=== PATIENT | male | born 1955 | race African-American/Black ===

== ENCOUNTER 2018-01-23 05:36 | Inpatient (IN) | payer MEDICARE, MEDICAID ==
[~2018-01-23] VITALS: Ht 167.6 cm; Wt 75.7 kg
[2018-01-23] MEDS ORDERED: NALOXONE HCL 0.4 MG/ML 1ML VIAL IV STA (06:13)
[2018-01-23 06:38] LABS: BASOPHILS % 0.5 % (0.0-2.0); EOSINOPHILS % 7.2 % (0.0-5.0); HEMATOCRIT. 38.1 % (42.0-52.0); HEMOGLOBIN. 12.6 g/dL (14.0-18.0); LYMPHOCYTES % 22.4 % (20.0-50.0); MEAN CORPUSCULAR HEMOGLOBIN 28.7 pg (28.0-32.0); MEAN CORPUSCULAR VOLUME 86.7 fL (80.0-94.0); MEAN PLATELET VOLUME 8.2 fl (7.4-10.4); MONOCYTES % 7.5 % (2.0-8.0); NEUTROPHILS % 62.4 % (40.0-76.0); PLATELET 228 x1000/uL (130-400); RED CELL DISTRIBUTION WIDTH 15.1 % (11.6-14.6)
[2018-01-23 06:44] LABS: CHLORIDE 104 mEq/L (98-107)
[2018-01-23 06:48] LABS: AMMONIA 41 uMol/L (<32); ETHANOL BLOOD < 10 mg/dL
[2018-01-23] MEDS ORDERED: IPRATROPIUM/ALBUTEROL 0.5-3(2.5)MG/3ML NEB HHN PRN (08:45)
[2018-01-23] MEDS ORDERED: DEXT 5%/0.45% NACL 1000ML 1,000 ML IV SCH (08:45)
[2018-01-23 08:57] LABS: BG BASE EXCESS 0.9 mmol/L (-2.0-2.0); BG CARBOXYHEMOGLOBIN 1.4 % (0.5-1.5); BG DEOXYHEMOGLOBIN 7.8 % (0.0-5.0); BG FRACTION INSPIRED OXYGEN 21; BG HCO3 ACT 26.7 mmol/L (22.0-26.0); BG METHEMOGLOBIN 0.2 % (0.0-1.5); BG OXYGEN SATURATION 92.1 % (92.0-98.5); BG OXYHEMOGLOBIN 90.6 % (94.0-97.0); BG PCO2 46.9 mmHg (35.0-45.0); BG PH 7.373 (7.350-7.450); BG PO2 65.9 mmHg (75.0-100.0); BG SAMPLE SITE RIGHT BRACHIAL; BG TOTAL HEMOGLOBIN 13.6 g/dL (12.0-18.0); BG VENT MODE ROOM AIR
[2018-01-23] MEDS ORDERED: BLOOD SUGAR DIAGNOSTIC STRIP TEST SCH (09:00)
[2018-01-23 09:46] LABS: CLARITY URINE CLEAR (CLEAR); COLOR URINE DARK YELLOW (YELLOW); KETONES URINE NEGATIVE (NEGATIVE); LEUKOCYTE ESTERASE URINE NEGATIVE (NEGATIVE); NITRITE URINE NEGATIVE (NEGATIVE); OCCULT BLOOD URINE NEGATIVE (NEGATIVE); PROTEIN URINE NEGATIVE (NEGATIVE); SPECIFIC GRAVITY URINE 1.035 (1.005-1.030)
[2018-01-23 10:07] LABS: *COCAINE SCREEN URINE NEGATIVE (NEGATIVE); OPIATES URINE SCREEN PRESUMTIVE POSITIVE (NEGATIVE)
[2018-01-23 10:08] LABS: *AMPHETAMINES SCREEN URINE NEGATIVE (NEGATIVE); *BENZODIAZEPINES SCREEN URINE PRESUMTIVE POSITIVE (NEGATIVE); CANNABINOID URINE SCREEN NEGATIVE (NEGATIVE)
[2018-01-23 10:09] LABS: *BARBITURATES SCREEN URINE NEGATIVE (NEGATIVE); METHADONE URINE SCREEN NEGATIVE (NEGATIVE)
[2018-01-23 10:10] LABS: PHENCYCLIDINE URINE SCREEN PRESUMTIVE POSITIVE (NEGATIVE)
[2018-01-23] MEDS ORDERED: KETOROLAC 30MG/ML VIAL IV ONE (11:00)
[2018-01-23] MEDS ORDERED: ACETAMINOPHEN 325MG TABLET PO ONE (11:00)
[2018-01-23 16:50] VITALS: BP 142/79
[2018-01-23] MEDS: HYDROCODONE/ACETAMINOPHEN 5/325MG TABLET PO PRN (17:31)
[2018-01-23] MEDS: INSULIN LISPRO 100 UNITS/ML SUBCUT SCH ×2 (17:32→21:00)
[2018-01-23] MEDS: BLOOD SUGAR DIAGNOSTIC STRIP TEST SCH ×2 (17:32→21:43)
[2018-01-23] MEDS ORDERED: DEXTROSE 50% WATER 50ML SYRINGE IV PRN (17:45)
[2018-01-23] MEDS ORDERED: BUDESONIDE 0.5MG/2ML NEB HHN SCH (18:00)
[2018-01-23 18:12] VITALS: BP 142/79
[2018-01-23 20:00] VITALS: BP 199/98
[2018-01-23] MEDS: CLONIDINE 0.1MG TABLET PO PRN (20:15)
[2018-01-23] MEDS ORDERED: AMLO10TA80 PO (20:31)
[2018-01-23] MEDS ORDERED: FINA5TAB3 PO (20:31)
[2018-01-23] MEDS ORDERED: ESCI20TA36 PO (20:31)
[2018-01-23] MEDS ORDERED: IRBE300T42 PO (20:32)
[2018-01-23] MEDS ORDERED: LORA0.5T2 PO (20:34)
[2018-01-23] MEDS ORDERED: TAMS-11 PO (20:34)
[2018-01-23] MEDS ORDERED: PREG75CA PO (20:34)
[2018-01-23] MEDS ORDERED: TIZA-19 PO (20:34)
[2018-01-23] MEDS ORDERED: MELA5TAB3 PO (20:35)
[2018-01-23] MEDS: HYDROMORPHONE HCL/PF 2MG/ML CPJ IV PRN (21:50)
[2018-01-23] MEDS: AMLODIPINE 5MG TABLET PO SCH (21:51)
[2018-01-24] VITALS: BP 178/85
[2018-01-24] MEDS: CLONIDINE 0.1MG TABLET PO PRN (01:40)
[2018-01-24] MEDS: HYDROMORPHONE HCL/PF 2MG/ML CPJ IV PRN ×3 (03:18→16:27)
[2018-01-24 04:00] VITALS: BP 144/87
[2018-01-24] MEDS: BLOOD SUGAR DIAGNOSTIC STRIP TEST SCH ×3 (05:41→17:05)
[2018-01-24 07:03] LABS: BASOPHILS % 0.3 % (0.0-2.0); EOSINOPHILS % 7.1 % (0.0-5.0); HEMATOCRIT. 39.6 % (42.0-52.0); HEMOGLOBIN. 13.4 g/dL (14.0-18.0); LYMPHOCYTES % 15.5 % (20.0-50.0); MEAN CORPUSCULAR VOLUME 85.7 fL (80.0-94.0); MEAN PLATELET VOLUME 8.1 fl (7.4-10.4); NEUTROPHILS % 70.1 % (40.0-76.0); PLATELET 233 x1000/uL (130-400); RED BLOOD CELL COUNT 4.62 mill/uL (4.7-6.1)
[2018-01-24] MEDS: INSULIN LISPRO 100 UNITS/ML SUBCUT SCH ×3 (07:42→17:20)
[2018-01-24 08:00] VITALS: BP 138/70
[2018-01-24 08:06] LABS: CHLORIDE 106 mEq/L (98-107)
[2018-01-24] MEDS ORDERED: AMLODIPINE 5MG TABLET PO SCH (09:00)
[2018-01-24] MEDS: AMLODIPINE 5MG TABLET PO SCH (09:07)
[2018-01-24 12:00] VITALS: BP 134/61
[2018-01-24] MEDS: HYDROCODONE/ACETAMINOPHEN 5/325MG TABLET PO PRN (14:57)
[2018-01-24] MEDS ORDERED: AMLODIPINE 10MG TABLET PO SCH (17:45)
[2018-01-24 18:03] VITALS: BP 133/60
[2018-01-24] MEDS ORDERED: FINASTERIDE 5MG TABLET PO SCH (18:45)
[2018-01-24] MEDS ORDERED: LORAZEPAM 0.5MG TABLET PO SCH (21:00)
[2018-01-25] MEDS ORDERED: TAMSULOSIN HCL 0.4MG SR CAPSULE PO SCH (09:00)
[2018-01-25] MEDS ORDERED: TIZANIDINE HCL 4MG TABLET PO SCH (09:00)
[2018-01-25] MEDS ORDERED: PREGABALIN 75MG CAPSULE PO SCH (09:00)
== END 2018-01-24 18:37 | disposition home or self-care (01) | DRG 917 ==
LOC: ER 05:36 → 7WST 07:55 → EDBEDREQ 07:58 → ENRESERV 15:48 → 7WST 16:46
PROVIDERS: ADMIT Internal Medicine Nephrology; ATTEND Internal Medicine Nephrology
DX: T50.901A Poisoning by unspecified drugs, medicaments and biological substances, accidental (unintentional), initial encounter (principal); G93.41 Metabolic encephalopathy; E44.1 Mild protein-calorie malnutrition; G95.89 Other specified diseases of spinal cord; M54.9 Dorsalgia, unspecified; E78.00 Pure hypercholesterolemia, unspecified; E78.5 Hyperlipidemia, unspecified; G89.29 Other chronic pain; J44.9 Chronic obstructive pulmonary disease, unspecified; D64.9 Anemia, unspecified; I11.9 Hypertensive heart disease without heart failure; Z68.27 Body mass index [BMI] 27.0-27.9, adult
CPT/HCPCS: 36415; 36600; 70450; 71045; 80048; 80053; 80061; 80305; 81003; 82140; 82375; 82805; 82962; 84443; 85025; 92610; 93005; 96374; 96375; 97162; 99285; G0482; J1170; J1815; J1885; J2310

== ENCOUNTER 2022-11-18 16:46 | Emergency (ER) | payer MEDICARE, MEDICAID ==
[~2022-11-18] VITALS: Ht 167.6 cm; Wt 73.0 kg
[~2022-11-18 16:46] MED LIST: AMLO10TA80 PO; ESCI20TA37 PO; FINA5TAB3 PO; IRBE300T42 PO; LORA0.5T2 PO; MELA5TAB3 PO; PREG75CA PO; TAMS-11 PO; TIZA-19 PO
[2022-11-18 17:13] LABS: BASOPHILS % 0.3 % (0.0-2.0); EOSINOPHILS % 1.7 % (0.0-5.0); HEMATOCRIT. 42.8 % (42.0-52.0); HEMOGLOBIN. 13.9 g/dL (14.0-18.0); LYMPHOCYTES % 20.9 % (20.0-50.0); MEAN CORPUSCULAR HEMOGLOBIN 30.2 pg (28.0-32.0); MEAN CORPUSCULAR VOLUME 92.8 fL (80.0-94.0); MEAN PLATELET VOLUME 8.6 fl (7.4-10.4); MONOCYTES % 4.7 % (2.0-8.0); NEUTROPHILS % 72.4 % (40.0-76.0); PLATELET 355 x1000/uL (130-400); RED BLOOD CELL COUNT 4.61 mill/uL (4.7-6.1); RED CELL DISTRIBUTION WIDTH 15.4 % (11.6-14.6)
[2022-11-18 17:17] LABS: CHLORIDE 102 mEq/L (98-107)
[2022-11-18 17:27] LABS: BETA HYDROXYBUTYRATE 0.2 mMol/L (0.0-0.3); ETHANOL BLOOD 250 mg/dL
[2022-11-18] MEDS ORDERED: HALOPERIDOL LACTATE 5MG/ML VIAL IM ONE (17:45)
[2022-11-18] MEDS ORDERED: LORAZEPAM 2MG/ML CPJ IV ONE (17:45)
[2022-11-18 17:59] LABS: CLARITY URINE CLEAR (CLEAR); COLOR URINE YELLOW (YELLOW); KETONES URINE NEGATIVE (NEGATIVE); LEUKOCYTE ESTERASE URINE NEGATIVE (NEGATIVE); NITRITE URINE NEGATIVE (NEGATIVE); OCCULT BLOOD URINE NEGATIVE (NEGATIVE); PROTEIN URINE TRACE (NEGATIVE); SPECIFIC GRAVITY URINE 1.011 (1.005-1.030); UROBILINOGEN URINE 0.2 E.U./dL (0.2-1.0)
[2022-11-18 18:14] LABS: *AMPHETAMINES SCREEN URINE NEGATIVE (NEGATIVE); *BARBITURATES SCREEN URINE NEGATIVE (NEGATIVE); *BENZODIAZEPINES SCREEN URINE NEGATIVE (NEGATIVE); *COCAINE SCREEN URINE NEGATIVE (NEGATIVE); CANNABINOID URINE SCREEN NEGATIVE (NEGATIVE); METHADONE URINE SCREEN NEGATIVE (NEGATIVE); OPIATES URINE SCREEN NEGATIVE (NEGATIVE); PHENCYCLIDINE URINE SCREEN NEGATIVE (NEGATIVE)
[2022-11-18 23:45] VITALS: BP 132/84
== END 2022-11-19 00:13 | disposition home or self-care (01) ==
LOC: ER 17:00
DX: G92.9 Unspecified toxic encephalopathy (principal); F10.20 Alcohol dependence, uncomplicated; Y90.8 Blood alcohol level of 240 mg/100 ml or more; J44.9 Chronic obstructive pulmonary disease, unspecified; E11.9 Type 2 diabetes mellitus without complications; E78.00 Pure hypercholesterolemia, unspecified; I10 Essential (primary) hypertension
CPT/HCPCS: 36415; 70450; 80053; 80305; 80307; 80320; 80329; 81003; 82010; 85025; 96372; 96374; 99291; J1630; J2060; G0480

== ENCOUNTER 2025-01-10 19:02 | Inpatient (IN) | payer MEDICARE, MEDICAID ==
[~2025-01-10] VITALS: Ht 165.1 cm; Wt 81.6 kg
[~2025-01-10 19:02] MED LIST changes: +FINA-37 PO; -FINA5TAB3 PO; +INSULIN GLARGINE 100 UNITS/ML SUBCUT SCH; -TAMS-11 PO; +TAMS-54 PO
[2025-01-10 20:00] VITALS: BP_SYST 137; BP_SYST 146; BP_DIAS 69; BP_DIAS 81; PULSE 66; PULSE 91; RESP 18; TEMP 36.3; TEMP 36.6; O2SAT 100
[2025-01-10] MEDS ORDERED: ONDANSETRON HCL 4MG/2ML INJ IV PRN (20:00)
[2025-01-10] MEDS ORDERED: DEXTROSE 50% WATER 50ML SYRINGE IV PRN (20:00)
[2025-01-10] MEDS ORDERED: HYDRALAZINE 20MG/ML VIAL IV PRN (20:00)
[2025-01-10] MEDS ORDERED: GUAIFENESIN 200MG/10ML SUGAR FREE UDC PO PRN (20:00)
[2025-01-10] MEDS ORDERED: DOCUSATE SODIUM 100MG CAPSULE PO PRN (20:00)
[2025-01-10] MEDS: INSULIN LISPRO 100 UNITS/ML SUBCUT SCH (21:00)
[2025-01-10] MEDS: BLOOD SUGAR DIAGNOSTIC STRIP TEST SCH (21:20)
[2025-01-11] MEDS: ACETAMINOPHEN 325MG TABLET PO PRN (00:17)
[2025-01-11] MEDS ORDERED: DOCUSATE SODIUM 100MG CAPSULE PO PRN (01:15)
[2025-01-11] MEDS: PANTOPRAZOLE 40MG DR TABLET PO SCH (06:20)
[2025-01-11] MEDS: INSULIN LISPRO 100 UNITS/ML SUBCUT SCH (07:00)
[2025-01-11 07:31] LABS: BASOPHILS % 0.4 % (0.0-2.0); EOSINOPHILS % 2.2 % (0.0-5.0); HEMATOCRIT. 30.6 % (42.0-52.0); HEMOGLOBIN. 10.1 g/dL (14.0-18.0); LYMPHOCYTES % 18.3 % (20.0-50.0); MEAN CORPUSCULAR HEMOGLOBIN 30.2 pg (28.0-32.0); MEAN CORPUSCULAR HGB CONC 32.9 g/dL (31.0-37.0); MEAN PLATELET VOLUME 7.7 fl (7.4-10.4); MONOCYTES % 7.8 % (2.0-8.0); NEUTROPHILS % 71.3 % (40.0-76.0); PLATELET 583 x1000/uL (130-400); RED BLOOD CELL COUNT 3.32 mill/uL (4.7-6.1); RED CELL DISTRIBUTION WIDTH 16.8 % (11.6-14.6); WHITE BLOOD COUNT 8.5 x1000/uL (4.5-11.0)
[2025-01-11 07:38] LABS: CHLORIDE 105 mEq/L (98-107); POTASSIUM 3.4 mEq/L (3.5-5.1); SODIUM 141 mEq/L (136-145)
[2025-01-11 07:39] LABS: CARBON DIOXIDE 27 mEq/L (21-32)
[2025-01-11 07:45] LABS: CREATININE 0.8 mg/dL (0.6-1.3); GLUCOSE 106 mg/dL (70-105); UREA NITROGEN BLOOD 11 mg/dL (9-23)
[2025-01-11 07:46] LABS: ALANINE AMINOTRANSFERASE 29 IU/L (10-49); ASPARTATE AMINOTRANSFERASE 28 IU/L (<34)
[2025-01-11 07:47] LABS: BILIRUBIN TOTAL 0.4 mg/dL (0.1-1.0); PREALBUMIN 6.2 mg/dl (10.0-40.0)
[2025-01-11 08:00] VITALS: BP 179/81; PULSE 82; RESP 20; TEMP 36.7; O2SAT 98
[2025-01-11] MEDS: LACTULOSE 20G/30ML UDC PO SCH (08:55)
[2025-01-11] MEDS: FERROUS SULFATE 300MG/5ML UDC PO SCH (08:56)
[2025-01-11] MEDS: CYANOCOBALAMIN 1000MCG TABLET PO SCH (08:56)
[2025-01-11] MEDS: MIDODRINE HCL 2.5MG TABLET PO SCH (09:00)
[2025-01-11] MEDS ORDERED: MIDODRINE HCL 5MG TABLET PO SCH (09:00)
[2025-01-11] MEDS ORDERED: CLOPIDOGREL 75MG TABLET PO SCH (09:00)
[2025-01-11] MEDS: FINASTERIDE 5MG TABLET PO SCH (09:02)
[2025-01-11] MEDS: TAMSULOSIN HCL 0.4MG SR CAPSULE PO SCH (09:03)
[2025-01-11] MEDS: ENOXAPARIN 40MG/0.4ML SYR SUBCUT SCH (09:07)
[2025-01-11 09:08] VITALS: BP 138/82; PULSE 91; RESP 19
[2025-01-11] MEDS: LIDOCAINE 5% PATCH TOP SCH (09:08)
[2025-01-11 10:23] LABS: CLARITY URINE CLEAR (CLEAR); COLOR URINE DARK YELLOW (YELLOW); GLUCOSE URINE 2+ (NEGATIVE); KETONES URINE TRACE (NEGATIVE); LEUKOCYTE ESTERASE URINE TRACE (NEGATIVE); NITRITE URINE NEGATIVE (NEGATIVE); OCCULT BLOOD URINE 2+ (NEGATIVE); PROTEIN URINE 1+ (NEGATIVE); SPECIFIC GRAVITY URINE 1.025 (1.005-1.030)
[2025-01-11 10:52] LABS: SQUAMOUS EPITHELIAL CELL URINE FEW /lpf (RARE/1+)
[2025-01-11 10:53] LABS: MUCUS URINE 3+ /lpf (NONE/TRACE)
[2025-01-11 10:55] LABS: RBC URINE 25-50 /hpf (0-2)
[2025-01-11 10:56] LABS: BACTERIA URINE TRACE
[2025-01-11] MEDS: INSULIN GLARGINE 100 UNITS/ML SUBCUT SCH (11:44)
[2025-01-11 17:22] VITALS: BP 137/56; PULSE 89
[2025-01-11] MEDS: POTASSIUM CHLORIDE 20MEQ TABLET SR PO SCH (18:24)
[2025-01-11 20:00] VITALS: BP 114/54; PULSE 88; RESP 18; TEMP 36.4; O2SAT 99
[2025-01-11] MEDS: DICLOFENAC SODIUM 1% GEL 50GM TOP SCH (20:42)
[2025-01-11] MEDS: MELATONIN 3MG TABLET PO SCH (21:22)
[2025-01-12 06:56] LABS: CHLORIDE 105 mEq/L (98-107); POTASSIUM 3.9 mEq/L (3.5-5.1); SODIUM 138 mEq/L (136-145)
[2025-01-12 06:58] LABS: CALCIUM 8.8 mg/dL (8.7-10.4); CARBON DIOXIDE 24 mEq/L (21-32)
[2025-01-12 07:03] LABS: GLUCOSE 203 mg/dL (70-105); UREA NITROGEN BLOOD 12 mg/dL (9-23)
[2025-01-12 08:00] VITALS: BP 149/61; PULSE 90; RESP 19; TEMP 36.5; O2SAT 98
[2025-01-12] MEDS: LIDOCAINE 5% PATCH TOP SCH (09:17)
[2025-01-12 20:00] VITALS: BP 121/59; PULSE 112; RESP 19; TEMP 36.3; O2SAT 96
[2025-01-13 09:07] VITALS: BP 141/60; PULSE 92
[2025-01-13 17:45] LABS: CLARITY URINE CLEAR (CLEAR); COLOR URINE YELLOW (YELLOW); GLUCOSE URINE 3+ (NEGATIVE); KETONES URINE NEGATIVE (NEGATIVE); LEUKOCYTE ESTERASE URINE NEGATIVE (NEGATIVE); NITRITE URINE NEGATIVE (NEGATIVE); OCCULT BLOOD URINE NEGATIVE (NEGATIVE); PROTEIN URINE NEGATIVE (NEGATIVE); SPECIFIC GRAVITY URINE 1.029 (1.005-1.030); UROBILINOGEN URINE 0.2 E.U./dL (0.2-1.0)
[2025-01-13 18:03] LABS: BACTERIA URINE NONE SEEN; RBC URINE NONE SEEN /hpf (0-2); SQUAMOUS EPITHELIAL CELL URINE FEW /lpf (RARE/1+); WBC URINE 0-2 /hpf (0-2); YEAST URINE 2+
[2025-01-13] MEDS: FLUCONAZOLE 100MG TABLET PO SCH (18:53)
[2025-01-13 20:00] VITALS: BP 130/59; PULSE 105; RESP 18; TEMP 36.4; O2SAT 99
[2025-01-14 08:00] VITALS: BP 150/65; PULSE 95; RESP 18; TEMP 36.7; O2SAT 98
[2025-01-14] MEDS: FOLIC ACID 1MG TABLET PO SCH (08:56)
[2025-01-14] MEDS: THIAMINE HCL 100MG TABLET PO SCH (08:56)
[2025-01-14] MEDS: LORAZEPAM 0.5MG TABLET PO PRN (19:49)
[2025-01-14 20:00] VITALS: BP 139/64; PULSE 99; RESP 19; TEMP 36.6; O2SAT 99
[2025-01-14] MEDS ORDERED: TRIAMCINOLONE ACETONIDE 40MG/ML 1ML VIAL IM NR (21:30)
[2025-01-15 08:00] VITALS: BP 157/72; PULSE 101; RESP 18; TEMP 36.2; O2SAT 98
[2025-01-15] MEDS: FAMOTIDINE 20MG TABLET PO SCH (09:24)
[2025-01-15 20:00] VITALS: BP 100/73; PULSE 89; RESP 18; TEMP 37.3; O2SAT 100
[2025-01-16 06:06] LABS: BASOPHILS % 0.7 % (0.0-2.0); EOSINOPHILS % 3.5 % (0.0-5.0); HEMATOCRIT. 28.7 % (42.0-52.0); HEMOGLOBIN. 9.5 g/dL (14.0-18.0); LYMPHOCYTES % 20.7 % (20.0-50.0); MEAN CORPUSCULAR HEMOGLOBIN 30.5 pg (28.0-32.0); MEAN CORPUSCULAR HGB CONC 33.1 g/dL (31.0-37.0); MEAN PLATELET VOLUME 7.4 fl (7.4-10.4); MONOCYTES % 8.8 % (2.0-8.0); NEUTROPHILS % 66.3 % (40.0-76.0); PLATELET 592 x1000/uL (130-400); RED BLOOD CELL COUNT 3.12 mill/uL (4.7-6.1); RED CELL DISTRIBUTION WIDTH 16.1 % (11.6-14.6); WHITE BLOOD COUNT 6.9 x1000/uL (4.5-11.0)
[2025-01-16 06:23] LABS: AMMONIA 18 uMol/L (<32)
[2025-01-16 06:26] LABS: CHLORIDE 105 mEq/L (98-107); POTASSIUM 3.5 mEq/L (3.5-5.1); SODIUM 141 mEq/L (136-145)
[2025-01-16 06:27] LABS: CALCIUM 8.7 mg/dL (8.7-10.4); CARBON DIOXIDE 25 mEq/L (21-32)
[2025-01-16 06:32] LABS: CREATININE 0.9 mg/dL (0.6-1.3); GLUCOSE 170 mg/dL (70-105); UREA NITROGEN BLOOD 10 mg/dL (9-23)
[2025-01-16 06:34] LABS: ALANINE AMINOTRANSFERASE 15 IU/L (10-49); ALBUMIN 3.4 g/dL (3.2-4.8); ASPARTATE AMINOTRANSFERASE 13 IU/L (<34); BILIRUBIN TOTAL 0.3 mg/dL (0.1-1.0); PROTEIN TOTAL 6.1 g/dL (6.0-8.3)
[2025-01-16 08:00] VITALS: BP 164/69; PULSE 96; RESP 18; TEMP 36.4; O2SAT 98
[2025-01-16 20:00] VITALS: BP 140/81; PULSE 91; RESP 18; TEMP 36.9; O2SAT 98
[2025-01-17 08:00] VITALS: BP 147/77; PULSE 97; RESP 18; TEMP 36.7; O2SAT 97
[2025-01-17 20:00] VITALS: BP 164/86; PULSE 98; RESP 18; TEMP 36.7; O2SAT 99
[2025-01-17] MEDS: CLONIDINE 0.1MG TABLET PO PRN (22:01)
[2025-01-18 08:00] VITALS: BP 160/78; PULSE 74; RESP 18; TEMP 36.7; O2SAT 98
[2025-01-18] MEDS ORDERED: DEXTROSE 50% WATER 50ML SYRINGE IV PRN (11:30)
[2025-01-18] MEDS: INSULIN LISPRO 100 UNITS/ML SUBCUT SCH (13:37)
[2025-01-18 20:00] VITALS: BP 130/63; PULSE 91; RESP 18; TEMP 36.5; O2SAT 100
[2025-01-18] MEDS: TRAZODONE HCL 50MG TABLET PO SCH (20:28)
[2025-01-19 08:00] VITALS: BP 176/83; PULSE 79; RESP 19; TEMP 36.8; O2SAT 98
[2025-01-19] MEDS: ASPIRIN 81MG TABLET PO SCH (09:00)
[2025-01-19 09:56] VITALS: BP 139/68; PULSE 95
[2025-01-19] MEDS: IOHEXOL-350 100 ML BOTTLE ONE (10:56)
[2025-01-19 20:00] VITALS: BP 152/65; PULSE 100; RESP 19; TEMP 36.6; O2SAT 99
[2025-01-20 08:00] VITALS: BP 159/77; PULSE 65; RESP 20; TEMP 36; O2SAT 100
[2025-01-20] MEDS: RISPERIDONE 0.25MG TABLET PO SCH (09:00)
[2025-01-20 20:00] VITALS: BP 174/92; PULSE 93; RESP 18; TEMP 36.3; O2SAT 99
[2025-01-21 08:00] VITALS: BP 173/90; PULSE 98; RESP 20; TEMP 36.8; O2SAT 100
[2025-01-21] MEDS: AMLODIPINE 10MG TABLET PO SCH (10:53)
[2025-01-21] MEDS ORDERED: NON FORMULARY MED XX SCH ×2 (13:30)
[2025-01-21] MEDS: DEXAMETHASONE 4MG/ML 1ML VIAL IV SCH (14:15)
[2025-01-21] MEDS: BUPIVACAINE HCL/PF 0.5% (5MG/ML) 10ML INFIL SCH (14:30)
[2025-01-21] MEDS ORDERED: LIDOCAINE HCL 2% 5ML SYRINGE IV SCH (15:30)
[2025-01-21] MEDS ORDERED: VISCOUS LIDOCAINE 2% 15 ML UDC MM SCH (16:00)
[2025-01-21] MEDS: LIDOCAINE HCL/PF 2% 20MG/ML 5 ML/VIAL INJ SCH (16:00)
[2025-01-21 20:00] VITALS: BP 149/72; PULSE 122; RESP 20; TEMP 36.7; O2SAT 99
[2025-01-22 08:00] VITALS: BP 161/69; PULSE 98; RESP 20; TEMP 36.2; O2SAT 98
[2025-01-22 20:00] VITALS: BP 143/69; PULSE 105; RESP 18; TEMP 36.4
[2025-01-22] MEDS: INSULIN GLARGINE 100 UNITS/ML SUBCUT SCH (22:45)
[2025-01-23 06:39] LABS: BASOPHILS % 0.9 % (0.0-2.0); EOSINOPHILS % 4.8 % (0.0-5.0); HEMATOCRIT. 31.6 % (42.0-52.0); HEMOGLOBIN. 10.5 g/dL (14.0-18.0); LYMPHOCYTES % 30.9 % (20.0-50.0); MEAN CORPUSCULAR HEMOGLOBIN 30.3 pg (28.0-32.0); MEAN CORPUSCULAR HGB CONC 33.1 g/dL (31.0-37.0); MEAN CORPUSCULAR VOLUME 91.7 fL (80.0-94.0); MEAN PLATELET VOLUME 7.8 fl (7.4-10.4); MONOCYTES % 8.2 % (2.0-8.0); NEUTROPHILS % 55.2 % (40.0-76.0); PLATELET 386 x1000/uL (130-400); RED BLOOD CELL COUNT 3.45 mill/uL (4.7-6.1); WHITE BLOOD COUNT 6.2 x1000/uL (4.5-11.0)
[2025-01-23 07:06] LABS: CHLORIDE 101 mEq/L (98-107); POTASSIUM 4.1 mEq/L (3.5-5.1); SODIUM 137 mEq/L (136-145)
[2025-01-23 07:07] LABS: CALCIUM 9.1 mg/dL (8.7-10.4); CARBON DIOXIDE 28 mEq/L (21-32)
[2025-01-23 07:12] LABS: GLUCOSE 259 mg/dL (70-105)
[2025-01-23 07:13] LABS: UREA NITROGEN BLOOD 10 mg/dL (9-23)
[2025-01-23 08:00] VITALS: BP 134/70; PULSE 109; RESP 18; TEMP 36.2; O2SAT 99
[2025-01-23] MEDS: INSULIN LISPRO 100 UNITS/ML SUBCUT SCH ×2 (10:38→15:40)
[2025-01-23] MEDS: INSULIN GLARGINE 100 UNITS/ML SUBCUT NR (14:24)
[2025-01-23 20:00] VITALS: BP_SYST 140; BP_SYST 144; BP_DIAS 71; BP_DIAS 75; PULSE 107; PULSE 76; RESP 18; TEMP 36.6; O2SAT 99
[2025-01-23] MEDS: INSULIN GLARGINE 100 UNITS/ML SUBCUT SCH (21:44)
[2025-01-24 08:00] VITALS: BP 130/72; PULSE 95; RESP 20; TEMP 36.8; O2SAT 98
[2025-01-24] MEDS: ASCORBIC ACID 500 MG TABLET PO SCH (08:20)
[2025-01-24] MEDS: MULTIVITAMINS,THER W-MINERALS TABLET PO SCH (08:21)
[2025-01-24] MEDS ORDERED: CEFEPIME 2GM IN DEXT 5% 100ML IV SCH (15:00)
[2025-01-24] MEDS ORDERED: CEFEPIME 2GM/50ML DUPLEX 50 ML IV SCH (16:00)
[2025-01-24] MEDS ORDERED: LINEZOLID 600MG TABLET PO SCH (18:00)
[2025-01-24 20:00] VITALS: BP 140/59; PULSE 98; RESP 18; TEMP 36.6; O2SAT 99
[2025-01-24] MEDS: VANCOMYCIN 1.5GM PMX (XELLIA) 300 ML IV NR (20:26)
[2025-01-24] MEDS: TRAZODONE HCL 50MG TABLET PO SCH (20:26)
[2025-01-24] MEDS ORDERED: DEXTROSE 50% WATER 50ML SYRINGE IV PRN (21:30)
[2025-01-25] MEDS ORDERED: INSULIN LISPRO 100 UNITS/ML SUBCUT SCH (07:00)
[2025-01-25] MEDS: BLOOD SUGAR DIAGNOSTIC STRIP TEST SCH (07:01)
[2025-01-25 08:00] VITALS: BP 144/67; PULSE 90; RESP 18; TEMP 36.7; O2SAT 99
[2025-01-25] MEDS: VANCOMYCIN 750MG PREMIX 150 ML IV SCH (09:11)
[2025-01-25] MEDS: INSULIN LISPRO (LOW DOSE) 100 UNITS/ML SUBCUT SCH (09:25)
[2025-01-25] MEDS: LORAZEPAM 0.5MG TABLET PO PRN (17:34)
[2025-01-25 20:00] VITALS: BP 133/61; PULSE 100; RESP 18; TEMP 36.6; O2SAT 99
[2025-01-25] MEDS: INSULIN GLARGINE 100 UNITS/ML SUBCUT SCH (21:55)
[2025-01-26] MEDS: BLOOD SUGAR DIAGNOSTIC STRIP TEST ONE (02:57)
[2025-01-26 08:00] VITALS: BP 139/75; PULSE 86; RESP 18; TEMP 36.8; O2SAT 98
[2025-01-26 17:06] LABS: BASOPHILS % 0.6 % (0.0-2.0); EOSINOPHILS % 3.3 % (0.0-5.0); HEMATOCRIT. 32.3 % (42.0-52.0); HEMOGLOBIN. 10.8 g/dL (14.0-18.0); LYMPHOCYTES % 25.2 % (20.0-50.0); MEAN CORPUSCULAR HEMOGLOBIN 30.6 pg (28.0-32.0); MEAN CORPUSCULAR HGB CONC 33.4 g/dL (31.0-37.0); MEAN CORPUSCULAR VOLUME 91.8 fL (80.0-94.0); MEAN PLATELET VOLUME 7.8 fl (7.4-10.4); NEUTROPHILS % 61.9 % (40.0-76.0); PLATELET 303 x1000/uL (130-400); RED BLOOD CELL COUNT 3.52 mill/uL (4.7-6.1); RED CELL DISTRIBUTION WIDTH 15.9 % (11.6-14.6); WHITE BLOOD COUNT 5.8 x1000/uL (4.5-11.0)
[2025-01-26] MEDS ORDERED: DEXTROSE 50% WATER 50ML SYRINGE IV PRN (17:15)
[2025-01-26 17:23] LABS: CHLORIDE 103 mEq/L (98-107); POTASSIUM 4.1 mEq/L (3.5-5.1); SODIUM 139 mEq/L (136-145)
[2025-01-26 17:24] LABS: CALCIUM 9.3 mg/dL (8.7-10.4); CARBON DIOXIDE 27 mEq/L (21-32)
[2025-01-26 17:29] LABS: GLUCOSE 118 mg/dL (70-105); UREA NITROGEN BLOOD 22 mg/dL (9-23)
[2025-01-26 20:00] VITALS: BP 150/61; PULSE 92; RESP 18; TEMP 38.2; O2SAT 97
[2025-01-27 06:00] VITALS: TEMP 36.6
[2025-01-27 20:00] VITALS: BP 135/64; PULSE 105; RESP 19; TEMP 36.4; O2SAT 99
[2025-01-28 08:00] VITALS: BP 135/73; PULSE 94; RESP 20; TEMP 36.7; O2SAT 100
[2025-01-28 20:00] VITALS: BP 152/66; PULSE 100; RESP 19; TEMP 36.1; O2SAT 98
[2025-01-29] MEDS: INSULIN LISPRO 100 UNITS/ML SUBCUT SCH (07:00)
[2025-01-29 08:00] VITALS: BP 140/68; PULSE 89; RESP 20; TEMP 35.9; O2SAT 97
[2025-01-29] MEDS ORDERED: LIDO700A30 TOP (10:07)
[2025-01-29] MEDS ORDERED: TRAZ-251 PO (10:07)
[2025-01-29] MEDS ORDERED: FERR325T6 PO (10:07)
[2025-01-29] MEDS ORDERED: ASCO500T20 PO (10:07)
[2025-01-29] MEDS ORDERED: FINA-37 PO (10:07)
[2025-01-29] MEDS ORDERED: AMLO10TA80 PO (10:07)
[2025-01-29] MEDS ORDERED: THIA100T72 PO (10:07)
[2025-01-29] MEDS ORDERED: RISP0.2514 PO (10:07)
[2025-01-29] MEDS ORDERED: MELA3TAB40 PO (10:07)
[2025-01-29] MEDS ORDERED: TAMS-54 PO (10:07)
[2025-01-29] MEDS ORDERED: CYAN-50 PO (10:07)
[2025-01-29] MEDS ORDERED: ASPI-1160 PO (10:07)
[2025-01-29 11:23] VITALS: BP 140/68; PULSE 89; TEMP 96.7; O2SAT 100
[2025-01-29] MEDS ORDERED: BLOO-1992 MC (12:09)
[2025-01-29] MEDS ORDERED: INSU100I13 SQ (12:09)
[2025-01-29] MEDS ORDERED: INSU100I28 SQ (12:09)
[2025-01-29] MEDS ORDERED: NEED-122 SQ (12:09)
== END 2025-01-29 14:40 | disposition home health service (06) | DRG 91 ==
PROVIDERS: ADMIT Physical Medicine & Rehabilitation Spinal Cord Injury Medicine; ATTEND Internal Medicine
PROC: GZ56ZZZ Individual Psychotherapy, Supportive (ICD-10-PCS; principal; 2025-01-19)
DX: G92.8 Other toxic encephalopathy (principal); A41.9 Sepsis, unspecified organism; L89.313 Pressure ulcer of right buttock, stage 3; E11.10 Type 2 diabetes mellitus with ketoacidosis without coma; R65.20 Severe sepsis without septic shock; E51.2 Wernicke's encephalopathy; F10.231 Alcohol dependence with withdrawal delirium; M62.82 Rhabdomyolysis; N17.9 Acute kidney failure, unspecified; L97.329 Non-pressure chronic ulcer of left ankle with unspecified severity; E46 Unspecified protein-calorie malnutrition; F03.93 Unspecified dementia, unspecified severity, with mood disturbance; F03.94 Unspecified dementia, unspecified severity, with anxiety; F33.1 Major depressive disorder, recurrent, moderate; E78.00 Pure hypercholesterolemia, unspecified; E87.6 Hypokalemia; G89.4 Chronic pain syndrome; I16.0 Hypertensive urgency; J98.4 Other disorders of lung; K59.00 Constipation, unspecified; R13.10 Dysphagia, unspecified; E11.51 Type 2 diabetes mellitus with diabetic peripheral angiopathy without gangrene; E55.9 Vitamin D deficiency, unspecified; F43.12 Post-traumatic stress disorder, chronic; J44.89 Other specified chronic obstructive pulmonary disease; Y90.9 Presence of alcohol in blood, level not specified; M54.9 Dorsalgia, unspecified; D50.9 Iron deficiency anemia, unspecified; F41.1 Generalized anxiety disorder; I11.9 Hypertensive heart disease without heart failure; R32 Unspecified urinary incontinence; K57.30 Diverticulosis of large intestine without perforation or abscess without bleeding; M41.9 Scoliosis, unspecified; L89.519 Pressure ulcer of right ankle, unspecified stage; I25.10 Atherosclerotic heart disease of native coronary artery without angina pectoris; R74.01 Elevation of levels of liver transaminase levels; E11.649 Type 2 diabetes mellitus with hypoglycemia without coma; B95.62 Methicillin resistant Staphylococcus aureus infection as the cause of diseases classified elsewhere; M81.0 Age-related osteoporosis without current pathological fracture; Z79.02 Long term (current) use of antithrombotics/antiplatelets; Z79.4 Long term (current) use of insulin; Z79.891 Long term (current) use of opiate analgesic; Z88.5 Allergy status to narcotic agent; Z91.81 History of falling; Z79.899 Other long term (current) drug therapy; Z79.82 Long term (current) use of aspirin; Z68.30 Body mass index [BMI] 30.0-30.9, adult
CPT/HCPCS: 36415; 73610; 73721; 75635; 80048; 80053; 80202; 81003; 82140; 82306; 82962; 84134; 85025; 87070; 87077; 87186; 92523; 92610; 93923; 97110; 97116; 97150; 97162; 97166; 97530; 97535; 97542; A4606; J0665; J0692; J1650; J1815; J2003; J3301; J3370; J3490; Q9967; A5200

== ENCOUNTER 2025-02-03 17:09 | Emergency (ER) | payer MEDICARE, MEDICAID ==
[~2025-02-03] VITALS: Ht 162.6 cm; Wt 75.0 kg
[~2025-02-03 17:09] MED LIST changes: +ASCO500T20 PO; +ASPI-1160 PO; +BLOO-1992 MC; +CYAN-50 PO; -ESCI20TA37 PO; +FERR325T6 PO; +INSU100I13 SQ; +INSU100I28 SQ; -INSULIN GLARGINE 100 UNITS/ML SUBCUT SCH; -IRBE300T42 PO; +LIDO700A30 TOP; -LORA0.5T2 PO; +MELA3TAB40 PO; -MELA5TAB3 PO; +NEED-122 SQ; -PREG75CA PO; +RISP0.2514 PO; +THIA100T72 PO; -TIZA-19 PO; +TRAZ-251 PO
[2025-02-03 17:13] VITALS: O2SAT 98
[2025-02-03] MEDS: DEXT 5%/LACTATED RINGERS 1,000 ML IV ONE (18:26)
[2025-02-03 19:03] LABS: INR 0.9; PROTHROMBIN TIME 10.2 sec (9.6-11.0)
[2025-02-03 19:04] LABS: BASOPHILS % 0.6 % (0.0-2.0); CHLORIDE 102 mEq/L (98-107); EOSINOPHILS % 0.7 % (0.0-5.0); HEMATOCRIT. 30.8 % (42.0-52.0); HEMOGLOBIN. 10.3 g/dL (14.0-18.0); LYMPHOCYTES % 11.2 % (20.0-50.0); MEAN CORPUSCULAR HEMOGLOBIN 30.3 pg (28.0-32.0); MEAN CORPUSCULAR HGB CONC 33.5 g/dL (31.0-37.0); MEAN CORPUSCULAR VOLUME 90.5 fL (80.0-94.0); MEAN PLATELET VOLUME 8.2 fl (7.4-10.4); MONOCYTES % 6.9 % (2.0-8.0); NEUTROPHILS % 80.6 % (40.0-76.0); PLATELET 292 x1000/uL (130-400); POTASSIUM 3.1 mEq/L (3.5-5.1); RED CELL DISTRIBUTION WIDTH 15.3 % (11.6-14.6); SODIUM 138 mEq/L (136-145); WHITE BLOOD COUNT 8.4 x1000/uL (4.5-11.0)
[2025-02-03 19:05] LABS: CARBON DIOXIDE 27 mEq/L (21-32)
[2025-02-03 19:10] LABS: GLUCOSE 91 mg/dL (70-105); UREA NITROGEN BLOOD 15 mg/dL (9-23)
[2025-02-03 19:50] LABS: CLARITY URINE CLEAR (CLEAR); COLOR URINE YELLOW (YELLOW); GLUCOSE URINE 3+ (NEGATIVE); KETONES URINE NEGATIVE (NEGATIVE); LEUKOCYTE ESTERASE URINE NEGATIVE (NEGATIVE); NITRITE URINE NEGATIVE (NEGATIVE); OCCULT BLOOD URINE NEGATIVE (NEGATIVE); PH URINE 5.5 (4.5-8.0); PROTEIN URINE NEGATIVE (NEGATIVE); SPECIFIC GRAVITY URINE 1.012 (1.005-1.030); UROBILINOGEN URINE 0.2 E.U./dL (0.2-1.0)
[2025-02-03 20:04] LABS: BACTERIA URINE TRACE; RBC URINE NONE SEEN /hpf (0-2); SQUAMOUS EPITHELIAL CELL URINE NONE SEEN /lpf (RARE/1+); WBC URINE 0-2 /hpf (0-2)
[2025-02-03 21:00] VITALS: BP 143/74; PULSE 80; RESP 18; TEMP 36.8; O2SAT 100
[2025-02-03] MEDS: POTASSIUM CHLORIDE 20MEQ TABLET SR PO SCH (21:21)
== END 2025-02-03 21:29 | disposition home or self-care (01) ==
LOC: ER 17:09
DX: E11.649 Type 2 diabetes mellitus with hypoglycemia without coma (principal); E78.00 Pure hypercholesterolemia, unspecified; I10 Essential (primary) hypertension; J44.89 Other specified chronic obstructive pulmonary disease; F10.90 Alcohol use, unspecified, uncomplicated; Z79.4 Long term (current) use of insulin; Z79.82 Long term (current) use of aspirin; Z79.899 Other long term (current) drug therapy; Z88.5 Allergy status to narcotic agent; Y90.9 Presence of alcohol in blood, level not specified
CPT/HCPCS: 99284; 80048; 81003; 82962; 85025; 85610; 36415; J7121